=== PATIENT | female | born 2000 | race Caucasian/White ===

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

== ENCOUNTER → 2023-06-23 | Day surgery (SDC) | payer OTHER ==
[2023-06-20 14:00] VITALS: BP 116/72
[2023-06-23] VITALS (8 sets, daily range): BP systolic 103–133; BP diastolic 51–81
[~2023-06-23] VITALS: Ht 172.7 cm; Wt 63.5 kg
== END | disposition home or self-care (01) ==
LOC: SDC 06-20 13:15
PROVIDERS: ATTEND Obstetrics & Gynecology
DX: N90.60 Unspecified hypertrophy of vulva (principal); F17.200 Nicotine dependence, unspecified, uncomplicated; Z98.890 Other specified postprocedural states